=== PATIENT | female | born 1940 | race Caucasian/White ===

== ENCOUNTER 2022-08-30 06:30 | Inpatient (IN) ==
[2022-08-30] MEDS ORDERED: ENOXAPARIN 80 MG/0.8 ML SYRINGE SUBCUT STA (07:03)
[2022-08-30] MEDS ORDERED: NITROGLYCERIN SL 0.4 MG TABLET SL STA (07:03)
[2022-08-30 07:09] LABS: Basophils # 0.1 10*3/uL (0.0-0.2); Basophils % 1.2 % (0.0-0.8); Eosinophils # 0.9 10*3/uL (0.0-0.87); Eosinophils % 9.4 % (0.00-10.9); Hematocrit 34.3 VOL% (35.7-47.0); Immature Granulocytes % 0.4 %; Immature Granulocytes Absolute 0.04 #; Lymphocytes # 2.1 10*3/uL (1.4-4.0); Lymphocytes % 20.8 % (21.3-54.2); Mean Corpuscular HGB Conc 32.1 GM/DL (32-36); Mean Corpuscular Volume 92.7 FL (87-102); Mean Platelet Volume 10.7 FL (9.6-12.0); Monocytes # 0.9 10*3/uL (0.11-0.8); Monocytes % 8.9 % (1.7-12.7); Neutrophils % 59.3 % (38.7-73.9); Platelet Count 276 T/CUMM (130-400); Red Cell Distribution Width 14.6 % (9.3-17.3)
[2022-08-30 07:18] LABS: INR 0.9; PT Patient Result 10.4 SECS (10.1-12.1); Partial Thromboplastin Time 28.7 SECS (23.7-32.9)
[2022-08-30 07:26] LABS: Albumin 3.4 G/DL (3.4-5.0); Bilirubin,Total 0.4 MG/DL (0.20-1.00); Calcium 9.1 MG/DL (8.5-10.1); Potassium 3.9 MMOL/L (3.5-5.1); Total Protein 5.8 G/DL (6.4-8.2)
[2022-08-30] MEDS ORDERED: SODIUM CHLORIDE 0.9% 1,000 ML IV STA (07:37)
[2022-08-30] MEDS ORDERED: ALBUTEROL 2.5 MG/3 ML NEB RESP TX PRN (08:59)
[2022-08-30] MEDS ORDERED: CALCIUM CARBONATE CHEW 500 MG TABLET PO PRN (08:59)
[2022-08-30] MEDS ORDERED: ALUMINUM/MAGNES/SIMETH MAX STR 30 ML UDCUP PO PRN (08:59)
[2022-08-30] MEDS ORDERED: ONDANSETRON 4 MG/2 ML VIAL IV PRN (08:59)
[2022-08-30] MEDS ORDERED: LACTULOSE 20 GM/30 ML UDCUP PO PRN (08:59)
[2022-08-30] MEDS ORDERED: hydrALAZINE 20 MG/1 ML VIAL IV PRN (08:59)
[2022-08-30] MEDS ORDERED: SIMETHICONE CHEW 125 MG TABLET PO PRN (08:59)
[2022-08-30] MEDS ORDERED: ENOXAPARIN 40 MG/0.4 ML SYRINGE SUBCUT SCH (09:00)
[2022-08-30] MEDS ORDERED: NITROGLYCERIN SL 0.4 MG TABLET SL PRN (09:08)
[2022-08-30] MEDS: SODIUM CHLORIDE 0.45% IV SCH ×2 (09:47→19:10)
[2022-08-30] MEDS: SODIUM BICARB IV SCH ×2 (09:47→19:10)
[2022-08-30] MEDS: PANTOPRAZOLE 40 MG TABLET PO SCH (11:05)
[2022-08-30] MEDS: DOCUSATE SODIUM 100 MG CAPSULE PO SCH ×2 (11:05→20:20)
[2022-08-30] MEDS: ISOSORBIDE MONONITRATE 30 MG TABLET PO SCH (15:40)
[2022-08-30] MEDS: ACETAMINOPHEN 325 MG TABLET PO PRN (17:44)
[2022-08-30] MEDS ORDERED: ENOXAPARIN 80 MG/0.8 ML SYRINGE SUBCUT SCH ×2 (19:00→21:00)
[2022-08-30] MEDS: LABETALOL 200 MG TABLET PO SCH (20:20)
[2022-08-30] MEDS: ROSUVASTATIN 20 MG TABLET PO SCH (20:20)
[2022-08-31] MEDS: ACETAMINOPHEN 325 MG TABLET PO PRN (01:00)
[2022-08-31] MEDS: SODIUM CHLORIDE 0.45% IV SCH ×2 (02:10→14:09)
[2022-08-31] MEDS: SODIUM BICARB IV SCH ×2 (02:10→14:09)
[2022-08-31 06:23] LABS: Basophils # 0.1 10*3/uL (0.0-0.2); Eosinophils # 0.7 10*3/uL (0.0-0.87); Eosinophils % 8.6 % (0.00-10.9); Hematocrit 30.9 VOL% (35.7-47.0); Hemoglobin 9.9 GM/DL (12.0-16.0); Immature Granulocytes % 0.4 %; Immature Granulocytes Absolute 0.03 #; Lymphocytes # 1.6 10*3/uL (1.4-4.0); Lymphocytes % 19.9 % (21.3-54.2); Mean Corpuscular Volume 92.2 FL (87-102); Mean Platelet Volume 10.3 FL (9.6-12.0); Monocytes # 0.8 10*3/uL (0.11-0.8); Monocytes % 9.9 % (1.7-12.7); Neutrophils % 60.2 % (38.7-73.9); Platelet Count 243 T/CUMM (130-400); Red Blood Count 3.35 MC/CUMM (3.8-5.5); Red Cell Distribution Width 14.5 % (9.3-17.3); White Blood Count 7.8 T/CUMM (4-12)
[2022-08-31 06:49] LABS: Calcium 8.1 MG/DL (8.5-10.1); Potassium 3.8 MMOL/L (3.5-5.1); Risk Ratio 3.34; Thyroid Stimulating Hormone 0.033 uIU/ml (0.358-3.74); VLDL Cholesterol 23.6 MG/DL
[2022-08-31] MEDS ORDERED: MAGNESIUM SULF RIDER 2 GM/50 ML PREMIX IV PRN (07:31)
[2022-08-31] MEDS ORDERED: POTASSIUM CHLORIDE RIDER 10 MEQ/100 ML PREMIX IV PRN (07:31)
[2022-08-31] MEDS ORDERED: DIAZEPAM 5 MG TABLET PO ONE (07:31)
[2022-08-31] MEDS ORDERED: diphenhydrAMINE CAP 25 MG CAPSULE PO ONE (07:31)
[2022-08-31] MEDS ORDERED: HEPARIN/NACL 0.9% 2 UNITS/ML 2,000 UNIT/1,000 ML BAG IV ONE (07:35)
[2022-08-31] MEDS: ASPIRIN EC 81 MG TABLET PO SCH (07:50)
[2022-08-31] MEDS: amLODIPine 10 MG TABLET PO SCH (07:50)
[2022-08-31] MEDS: ISOSORBIDE MONONITRATE 30 MG TABLET PO SCH (07:50)
[2022-08-31] MEDS: LABETALOL 200 MG TABLET PO SCH ×2 (07:50→20:41)
[2022-08-31] MEDS: DOCUSATE SODIUM 100 MG CAPSULE PO SCH ×2 (08:05→20:41)
[2022-08-31] MEDS: PANTOPRAZOLE 40 MG TABLET PO SCH (08:06)
[2022-08-31] MEDS ORDERED: fentaNYL 100 MCG/2 ML VIAL ONE (08:09)
[2022-08-31] MEDS ORDERED: MIDAZOLAM 2 MG/2 ML VIAL ONE ×2 (08:09→08:50)
[2022-08-31] MEDS ORDERED: HEPARIN 5,000 UNIT/1 ML VIAL ONE (08:31)
[2022-08-31] MEDS ORDERED: CLOPIDOGREL 300 MG TABLET ONE (08:55)
[2022-08-31] MEDS ORDERED: LEVOTHYROXINE 125 MCG TABLET PO SCH (09:00)
[2022-08-31] MEDS ORDERED: HYDROmorphone 1 MG/1 ML SYRINGE IV ONE (13:12)
[2022-08-31 13:28] LABS: Hematocrit 26.4 VOL% (35.7-47.0); Hemoglobin 8.4 GM/DL (12.0-16.0)
[2022-08-31] MEDS ORDERED: SODIUM CHLORIDE 0.45% 1,000 ML IV SCH (13:30)
[2022-08-31] MEDS: CLOPIDOGREL 75 MG TABLET PO SCH (14:38)
[2022-08-31 18:40] LABS: Hematocrit 25.7 VOL% (35.7-47.0); Hemoglobin 8.3 GM/DL (12.0-16.0)
[2022-08-31] MEDS: ROSUVASTATIN 20 MG TABLET PO SCH (20:41)
[2022-08-31] MEDS: MORPHINE 2 MG/1 ML SYRINGE IV PRN (20:42)
[2022-09-01] MEDS: MORPHINE 2 MG/1 ML SYRINGE IV PRN (00:28)
[2022-09-01] MEDS: ACETAMINOPHEN 325 MG TABLET PO PRN (00:28)
[2022-09-01 02:59] LABS: Basophils # 0.1 10*3/uL (0.0-0.2); Basophils % 0.6 % (0.0-0.8); Eosinophils # 0.2 10*3/uL (0.0-0.87); Eosinophils % 2.7 % (0.00-10.9); Hematocrit 24.5 VOL% (35.7-47.0); Immature Granulocytes % 0.7 %; Immature Granulocytes Absolute 0.06 #; Lymphocytes # 0.8 10*3/uL (1.4-4.0); Lymphocytes % 9.2 % (21.3-54.2); Mean Corpuscular HGB Conc 32.7 GM/DL (32-36); Mean Corpuscular Volume 93.2 FL (87-102); Mean Platelet Volume 10.3 FL (9.6-12.0); Monocytes # 0.6 10*3/uL (0.11-0.8); Monocytes % 6.7 % (1.7-12.7); Neutrophils % 80.1 % (38.7-73.9); Platelet Count 196 T/CUMM (130-400); Red Blood Count 2.63 MC/CUMM (3.8-5.5); Red Cell Distribution Width 14.4 % (9.3-17.3); White Blood Count 8.5 T/CUMM (4-12)
[2022-09-01 03:18] LABS: Calcium 7.8 MG/DL (8.5-10.1); Osmolality,Calculated 284.4 MOS/KG (273-304); Potassium 4.1 MMOL/L (3.5-5.1)
[2022-09-01] MEDS: ISOSORBIDE MONONITRATE 30 MG TABLET PO SCH (08:57)
[2022-09-01] MEDS: amLODIPine 10 MG TABLET PO SCH (08:57)
[2022-09-01] MEDS: CLOPIDOGREL 75 MG TABLET PO SCH (08:57)
[2022-09-01] MEDS: PANTOPRAZOLE 40 MG TABLET PO SCH (08:57)
[2022-09-01] MEDS: DOCUSATE SODIUM 100 MG CAPSULE PO SCH (08:57)
[2022-09-01] MEDS: LABETALOL 200 MG TABLET PO SCH (08:57)
[2022-09-01] MEDS: ASPIRIN EC 81 MG TABLET PO SCH (08:57)
[2022-09-01] MEDS ORDERED: FERROUS SULFATE 325 MG TABLET PO SCH (09:00)
[2022-09-01 11:37] LABS: Basophils # 0.1 10*3/uL (0.0-0.2); Basophils % 0.6 % (0.0-0.8); Eosinophils # 0.1 10*3/uL (0.0-0.87); Eosinophils % 1.1 % (0.00-10.9); Hematocrit 24.8 VOL% (35.7-47.0); Immature Granulocytes % 0.7 %; Immature Granulocytes Absolute 0.07 #; Lymphocytes # 0.7 10*3/uL (1.4-4.0); Lymphocytes % 6.3 % (21.3-54.2); Mean Corpuscular HGB Conc 32.3 GM/DL (32-36); Mean Corpuscular Volume 92.9 FL (87-102); Mean Platelet Volume 10.6 FL (9.6-12.0); Monocytes # 0.7 10*3/uL (0.11-0.8); Monocytes % 6.4 % (1.7-12.7); Neutrophils % 84.9 % (38.7-73.9); Platelet Count 197 T/CUMM (130-400); Red Blood Count 2.67 MC/CUMM (3.8-5.5); Red Cell Distribution Width 14.5 % (9.3-17.3); White Blood Count 10.4 T/CUMM (4-12)
[2022-09-01 13:17] VITALS: BP 159/61
[2022-09-02] MEDS ORDERED: LEVOTHYROXINE 112 MCG TABLET PO SCH (06:30)
== END 2022-09-01 13:48 | disposition home or self-care (01) | DRG 247 ==
LOC: N.EDINP 06:30 → N.ED 06:30 → SUATTDRO 08:59 → N.TELEN 14:00 → SUATTDRO 08-31 12:46
PROVIDERS: ADMIT Internal Medicine; ATTEND Internal Medicine
PROC: CLCCHCL (ICD-10-PCS; 2022-08-31 09:15)